=== PATIENT | male | born 1930 | race Asian ===

== ENCOUNTER 2016-11-04 15:25 | Emergency (ER) | payer MEDICARE ==
[~2016-11-04] VITALS: Ht 165.1 cm; Wt 68.0 kg
[2016-11-04 15:25] VITALS: BP_SYST 140
[2016-11-04] MEDS ORDERED: NACL 0.9% 1,000 ML IV ONE (15:48)
[2016-11-04 16:24] LABS: ANION GAP 5 (5-15); BASOPHILS # (AUTO) 0.1 K/uL (0.0-0.2); BASOPHILS % (AUTO) 0.8 % (0.0-2.0); CALCIUM 8.3 mg/dL (8.4-11.0); CHLORIDE 105 mmol/L (98-107); CREATININE 1.12 mg/dL (0.55-1.30); EOSINOPHILS # (AUTO) 0.4 K/uL (0.0-0.4); EOSINOPHILS % (AUTO) 5.7 % (0.0-4.0); GLUCOSE 113 mg/dL (70-99); HEMATOCRIT 37.3 % (36-54); HEMOGLOBIN 12.5 g/dL (14.0-18.0); LYMPHOCYTES # (AUTO) 1.1 K/uL (1.0-5.5); LYMPHOCYTES % (AUTO) 16.3 % (20.5-51.5); MEAN CORPUSCULAR HEMOGLOBIN 31 pg (27-31); MEAN CORPUSCULAR HGB CONC 34 % (32-36); MEAN CORPUSCULAR VOLUME 92 fL (79.0-98.0); MONOCYTES # (AUTO) 0.6 K/uL (0.0-1.0); MONOCYTES % (AUTO) 9.6 % (1.7-9.3); NEUTROPHILS # (AUTO) 4.3 K/uL (1.8-7.7); NEUTROPHILS % (AUTO) 67.6 % (40.0-70.0); PLATELET COUNT (AUTO) 218 K/uL (130-430); POTASSIUM 3.3 mmol/L (3.5-5.1); RED BLOOD CELL COUNT(AUTO) 4.06 MIL/uL (4.2-6.2); RED CELL DISTRIBUTION WIDTH 12.5 % (9.0-15.0); SODIUM SERUM 138 mmol/L (136-145); UREA NITROGEN, BLOOD 19 mg/dL (8-21); WHITE BLOOD COUNT (AUTO) 6.5 K/uL (4.8-10.8)
[2016-11-04 16:27] LABS: PROTHROMBIN TIME 10.8 SECS (9.5-12.5)
[2016-11-04 16:28] LABS: ALANINE AMINOTRANSFERASE 25 U/L (12-78); ASPARTATE AMINOTRANSFERASE 27 U/L (10-37); TOTAL BILIRUBIN 0.6 mg/dL (0.0-1.0)
[2016-11-04] MEDS ORDERED: IOHEXOL 100 ML IV ONE (17:06)
[2016-11-04 18:10] LABS: BILIRUBIN,URINE NEGATIVE (NEGATIVE); BLOOD, URINE NEGATIVE (NEGATIVE); CLARITY/URINE CLEAR (CLEAR); COLOR,URINE YELLOW (YELLOW); GLUCOSE,URINE NEGATIVE (NEGATIVE); KETONES,URINE NEGATIVE (NEGATIVE); LEUKOCYTE ESTERASE ,URINE NEGATIVE (NEGATIVE); NITRITE, URINE NEGATIVE (NEGATIVE); PROTEIN URINE NEGATIVE (NEGATIVE); UROBILINOGEN,URINE 0.2 (0.2-1.0)
[2016-11-04] MEDS: ASPIRIN 81 MG TAB.CHEW PO ONE ×2 (19:05→19:09)
[2016-11-04] MEDS: NITROGLYCERIN 1 INCH (GM) OINT. TD ONE ×2 (19:05→19:09)
[2016-11-04] MEDS ORDERED: LORazepam 2 MG/ML VIAL IVP ONE (19:15)
[2016-11-04] MEDS ORDERED: LORazepam 2 MG/ML VIAL (FOR ER USE) ONE (19:23)
[2016-11-04] MEDS ORDERED: POTASSIUM CHLORIDE 20 MEQ/PKT PACKET PO ONE (20:00)
[2016-11-04 20:50] VITALS: BP_SYST 131
== END 2016-11-04 20:50 | disposition short-term general hospital (02) ==
LOC: SED 15:25
DX: J18.9 Pneumonia, unspecified organism (principal); J90 Pleural effusion, not elsewhere classified; N18.9 Chronic kidney disease, unspecified; I50.9 Heart failure, unspecified; R14.3 Flatulence
CPT/HCPCS: 36415; 71010; 71260; 80053; 81003; 82550; 83880; 84484; 85025; 85610; 85730; 93005; 96361; 96374; 99285; J2060; J7030; Q9967